=== PATIENT | female | born 1985 | race Caucasian/White ===

== ENCOUNTER 2022-12-30 14:07 | Outpatient (CLI) | payer OTHER, SELFPAY ==
--- NOTE | ~2022-12-30 | CT_ITS ---
EXAMINATION: CT abdomen pelvis w con DATE: 12/30/2022 15:00 INDICATION: Low abdominal pain. TECHNIQUE: Computed tomography (CT) of the abdomen and pelvis was performed with 100 mL Omnipaque 350 intravenous contrast. Automated exposure control and iterative reconstruction technique were employe d. The dose-length product was 477.07 mGy-cm. COMPARISON: None. FINDINGS: The visualized portions of the lung bases demonstrate emphysema. No pleural effusion. The h eart size is normal. No pericardial effusion. There is a 10 mm cyst in the spleen. The liver, gallbla dder, pancreas, adrenal glands, and kidneys are normal. There are no dilated loops of bowel. The appe ndix is normal. There are likely changes of fundoplication of the stomach. There are no pathologicall y enlarged lymph nodes. There is no free intraperitoneal fluid. There is mild lumbar spondylosis. IMPRESSION: 1. No etiology for the patient's symptoms. Reviewed, dictated and finalized at location E.
== END 2022-12-30 14:08 | disposition home or self-care (01) ==
LOC: ANHIMG 14:13
PROVIDERS: PCP Emergency Medicine; Visit Provider Emergency Medicine
DX: R10.30 Lower abdominal pain, unspecified (principal)
CPT/HCPCS: 74177; Q9967

== ENCOUNTER 2023-01-19 13:15 | Emergency (ER) | payer OTHER, SELFPAY ==
--- NOTE | ~2023-01-19 | XR_ITS ---
EXAMINATION: XR ankle LT min 3V DATE: 01/19/2023 13:39 INDICATION: Left ankle pain. Fall. TECHNIQUE: 4 views of left ankle were obtained. COMPARISON: None. FINDINGS: Bone alignment is normal. No fracture. Joint spaces are normal. There is ankle soft tissue swelling. IMPRESSION: 1. No fracture. Reviewed, dictated and finalized at location A. IMPRESSION: 1. No fracture.
[2023-01-19 13:16] VITALS: BP 141/75; PULSE 105; RESP 20; TEMP 36.6; O2SAT 100
--- NOTE | 2023-01-19 13:55 | ED.LOWEXIN ---
HPI - Extremity Injury (Lower) General Chief Complaint: Extremity Injury, Lower Stated Complaint: left ankle foot/ankle injury Time Seen by Provider: 01/19/23 13:36 Source: patient Mode of arrival: wheelchair Limitations: no limitations History of Present Illness HPI Narrative: This is a 37 year old female that presents to the ER for left ankle pain after an injury yesterday. Reports tripping walking up stairs. Reports pain and swelling to the ankle laterally. Denies decreased ROM or numbness. Related Data Allergies Allergy/AdvReac Type Severity Reaction Status Date / Time cephalexin Allergy Swelling Verified 01/19/23 13:24 sulfamethoxazole Allergy Swelling Verified 01/19/23 13:24 [From Bactrim] trimethoprim [From Bactrim] Allergy Swelling Verified 01/19/23 13:24 Review of Systems Review of Systems: CONSTITUTIONAL: Denies fever MUSCULOSKELETAL: Reports joint pain, and myalgia. NEUROLOGIC: Denies numbness All systems reviewed & are unremarkable except as noted in HPI and below PMFSH Past Medical History Medical History (Updated 01/19/23 @ 14:02 by Leslie Avelar PA-C) No active medical problems Social History Social History (Updated 01/19/23 @ 13:59 by Leslie Avelar PA-C) Smoking status: Never smoker Exam Narrative: GENERAL: Well-appearing, well-nourished, and in no acute distress. HEAD: Normocephalic, atraumatic. EYES: EOMI. EXTREMITIES: Normal range of motion. Mild edema about the left lateral malleoli. Normal DP pulse. Normal sensation SKIN: Warm, dry, no rash. NEURO: No focal deficits. Alert and oriented x3. PSYCH: Normal mood and affect Course Course Emergency Course: Patient was updated on work-up and agrees with plan of care Vital Signs Vital signs: Vital Signs Temperature 97.8 F 01/19/23 13:16 Pulse Rate 105 H 01/19/23 13:16 Respiratory Rate 20 01/19/23 13:16 Blood Pressure 141/75 H 01/19/23 13:16 Pulse Oximetry 100 01/19/23 13:16 Oxygen Delivery Room Air 01/19/23 13:16 Temperature 97.8 F 01/19/23 13:16 Pulse Rate 105 H 01/19/23 13:16 Respiratory Rate 20 01/19/23 13:16 Blood Pressure 141/75 H 01/19/23 13:16 Pulse Oximetry 100 01/19/23 13:16 Oxygen Delivery Room Air 01/19/23 13:16 MDM - Extremity Injury (Lower) MDM Narrative Medical decision making narrative: Patient presents to the emergency department for left ankle pain after an injury yesterday. Patient is neurovascularly intact. Left ankle x-ray without acute osseous abnormalities. Patient was educated on ankle sprain care. She is to follow-up with primary provider. She was given warnings to return to the ED Differential Diagnosis Differential diagnosis: Likely ankle sprain and strain and ankle fracture Imaging Data Radiologist's impression: ITS Impressions Ankle X-Ray 01/19/23 13:41 IMPRESSION: 1. No fracture. Critical Care Time Critical Care Time Critical Care Time: No Discharge Plan Discharge Clinical Impression: Ankle sprain and strain Patient Disposition: Home, Self-Care Condition: Stable Instructions: Ankle Sprain (ED) Additional Instructions: Return to the ER if you experience fever, redness and swelling of your extremity, numbness or any other symptoms that are concerning to you Wear ROMULO wrap and use crutches. No weight on the affected leg until able to bear weight without pain. Ice and elevate extremity. Pain medication as needed and directed. Follow up with your doctor for further care. Follow-up/Referrals: Tony Wise MD [Primary Care Provider] - 1 Week Stand Alone Forms: Work/School Release IP
[2023-01-19 14:15] VITALS: BP 135/95; PULSE 98; O2SAT 99
== END 2023-01-19 14:16 | disposition home or self-care (01) ==
PROVIDERS: Emergency Provider Physician Assistant; PCP Emergency Medicine
DX: S93.402A Sprain of unspecified ligament of left ankle, initial encounter (principal); S96.912A Strain of unspecified muscle and tendon at ankle and foot level, left foot, initial encounter; W10.9XXA Fall (on) (from) unspecified stairs and steps, initial encounter
CPT/HCPCS: 73610; 99283

== ENCOUNTER 2023-10-31 15:06 | Emergency (ER) | payer OTHER, SELFPAY ==
[2023-10-31 15:16] VITALS: BP 144/83; PULSE 110; RESP 16; TEMP 36.4; O2SAT 100
--- NOTE | 2023-10-31 15:17 | ED.EAR ---
HPI - Ear Problem General Chief complaint: Ear Stated complaint: Ear Pain Time Seen by Provider: 10/31/23 15:17 Source: patient Mode of arrival: ambulatory Limitations: no limitations History of Present Illness HPI Narrative: 38 y/o female presented for small ear infection in left ear. States she had her ear cleaned out by chiropractor about 2 weeks ago, and was told at that time she had the small ear infection. She did not have time to seek treatment until today. denies ear pain, tinnitus, dizziness, ear drainage or nasal congestion. Reports occasional sore throat and lost her voice about one week ago. MD Complaint: ear pain Related Data Home Medications Medication Instructions Recorded Confirmed aspirin 81 mg tablet,delayed 81 mg PO WEEKLY 10/31/23 10/31/23 release metoprolol succinate 50 mg 50 mg PO WEEKLY 10/31/23 10/31/23 tablet,extended release 24 hr Allergies Allergy/AdvReac Type Severity Reaction Status Date / Time cephalexin Allergy Swelling Verified 10/31/23 15:17 sulfamethoxazole Allergy Swelling Verified 10/31/23 15:17 [From Bactrim] trimethoprim [From Bactrim] Allergy Swelling Verified 10/31/23 15:17 Review of Systems Review of Systems: CONSTITUTIONAL: Denies malaise, chills, or fever. EYES: Denies visual changes, redness, or discharge. ENT: Denies rhinorrhea, congestion, sinus pain, and sore throat. denies ear pain CARDIOVASCULAR: Denies chest pain, palpitations, or edema. RESPIRATORY: Denies cough or dyspnea. SKIN: Denies rash or itching. MUSCULOSKELETAL: Denies myalgia. NEUROLOGIC: Denies headache. All systems reviewed & are unremarkable except as noted in HPI and below PMFSH Past Medical History Medical History No active medical problems Social History Social History Smoking status: Never smoker Comments At time of signature, agree with nursing past medical, surgical, social and family history. There is no relevant family history pertinent to the presenting complaint Exam Narrative: GENERAL: Well-appearing, and in no acute distress. EYES: PERRLA, conjunctivae clear ENT: Nares clear. Mucous membranes moist. TMs pearly cabrales with normal light reflex bilaterally; no tragal tenderness. Oropharynx mildly erythematous without lesions. Tonsils enlarged without exudate, no drooling, no hoarseness, no trismus, uvula midline. NECK: Supple. No lymphadenopathy CHEST: Clear to auscultation, breath sounds equal. No wheezing, rhonchi, rales, or stridor. No respiratory distress, speaks in full sentences. HEART: Regular rate and rhythm. No murmur heard. SKIN: Warm, dry, no rash. NEURO: Alert and oriented x3. PSYCH: Normal mood and affect Course Course Emergency Course: Patient is aware of diagnosis, understands and agrees to treatment plan. Anticipatory guidance given. Patient agrees to follow-up as directed and is aware of reasons to seek care at the emergency department. Portions of this record may have been created with voice recognition software Level of Care: Express Care Visit Vital Signs Vital signs: Vital Signs Temperature 97.5 F L 10/31/23 15:16 Pulse Rate 110 H 10/31/23 15:16 Respiratory Rate 16 10/31/23 15:16 Blood Pressure 144/83 H 10/31/23 15:16 Pulse Oximetry 100 10/31/23 15:16 Temperature 97.5 F L 10/31/23 15:16 Pulse Rate 110 H 10/31/23 15:16 Respiratory Rate 16 10/31/23 15:16 Blood Pressure 144/83 H 10/31/23 15:16 Pulse Oximetry 100 10/31/23 15:16 Reviewed Medical Decision Making MDM Narrative Medical decision making narrative: Discussed physical exam findings, no AOM noted. Strep negative. Advised supportive measures and signs/symptoms to go to the ER. Patient is appropriate for outpatient treatment and follow-up. Differential Diagnosis Differential Diagnosis: Coronavirus, strep pharyngitis, allergic
== END 2023-10-31 15:45 | disposition home or self-care (01) ==
PROVIDERS: Emergency Provider Nurse Practitioner Family; PCP Emergency Medicine
DX: H92.02 Otalgia, left ear (principal); Z79.82 Long term (current) use of aspirin
CPT/HCPCS: 87081; 87880; 99213; G0463

== ENCOUNTER 2024-05-29 08:39 | Outpatient (CLI) | payer OTHER, SELFPAY ==
--- NOTE | ~2024-05-29 | MM_ITS ---
EXAMINATION: MM screening eduardo BI w wendy HISTORY: Screening TECHNIQUE: Craniocaudal and mediolateral oblique 3-D tomosynthesis images were obtained and synthetic 2-D images were generated. CAD analysis was submitted and interpreted. COMPARISON: No prior mammogram is available for comparison at this institution. BREAST PARENCHYMAL COMPOSITION: Not dense: There are scattered areas of fibroglandular density. FINDINGS: There is no evidence of suspicious mass, calcification, or architectural distortion to sugg est malignancy in either breast. There has been no suspicious interval change. IMPRESSION: 1. No mammographic evidence of malignancy. 2. Recommend routine screening mammography in one year. BI-RADS Category 1: Negative Reviewed, dictated and finalized at location B. CE ASSOCIATE
== END 2024-05-29 08:40 | disposition home or self-care (01) ==
LOC: ANHIMG 08:44
PROVIDERS: PCP Emergency Medicine; Visit Provider Emergency Medicine
DX: Z12.31 Encounter for screening mammogram for malignant neoplasm of breast (principal)
CPT/HCPCS: 77063; 77067

== ENCOUNTER 2025-05-31 07:20 | Outpatient (CLI) | payer OTHER, SELFPAY ==
--- NOTE | ~2025-05-31 | MM_ITS ---
EXAMINATION: MM screening eduardo BI w wendy HISTORY: Screening. TECHNIQUE: Craniocaudal and mediolateral oblique 3-D tomosynthesis images were obtained and synthetic 2-D images were generated. CAD analysis was submitted and interpreted. COMPARISON: 2023 BREAST PARENCHYMAL COMPOSITION: Not Dense: There are scattered areas of fibroglandular FINDINGS: No suspicious masses are seen. There are no suspicious calcifications. No unexplained architectural distortion is seen. There are no skin or nipple abnormalities identified. There is no adenopathy seen on the images submitted. IMPRESSION: No mammographic evidence to suggest malignancy is seen. The patient may return to screening mammography as per ACR guidelines. BI-RADS 1 - Negative. Reviewed, dictated and finalized at location C. D MONITOR
== END 2025-05-31 07:21 | disposition home or self-care (01) ==
LOC: ANHFOHIMG 07:23
PROVIDERS: PCP Internal Medicine; Visit Provider Internal Medicine
DX: Z12.31 Encounter for screening mammogram for malignant neoplasm of breast (principal)
CPT/HCPCS: 77063; 77067